=== PATIENT | female | born 1990 | race African-American/Black ===

== ENCOUNTER 2022-05-05 16:56 | Emergency (ER) | payer OTHER ==
[2022-05-05 18:23] LABS: Bilirubin Neg (Negative); Blood, Urine 10 (Negative); Clarity Clear (Clear); Glucose, Urine (Dipstick) Normal (Negative); Ketone, Urine 5 mg/dL (Negative); Leukocyte 100 (Negative); Nitrite Negative (Negative); Protein, Urine (Dipstick) 15 mg/dl (Neg-Trace); Specific Gravity, Urine 1.025 (1.002-1.036)
[2022-05-05 18:38] LABS: Bacteria/HPF 2+ HPF (None Seen); Mucous/LPF Rare LPF (<2+); RBC/HPF 0-3 HPF (0-3)
== END 2022-05-05 19:35 | disposition home or self-care (01) ==
LOC: CSHERS 16:56
DX: N39.0 Urinary tract infection, site not specified (principal); M54.50 Low back pain, unspecified
CPT/HCPCS: 81003; 81015; 87086; 99283

== ENCOUNTER 2022-05-05 19:40 | Day surgery (SDC) | payer OTHER ==
[2022-05-05 20:16] VITALS: BMI 36.5
== END 2022-05-05 21:08 | disposition home or self-care (01) ==
LOC: CSHLD/OP 19:40
PROVIDERS: ATTEND Obstetrics & Gynecology
DX: O23.42 Unspecified infection of urinary tract in pregnancy, second trimester (principal); N39.0 Urinary tract infection, site not specified; Z3A.25 25 weeks gestation of pregnancy
CPT/HCPCS: 99282

== ENCOUNTER 2022-07-28 16:36 | Day surgery (SDC) | payer OTHER ==
[2022-07-28] MEDS ORDERED: hydrALAZINE 20 MG/ML VIAL SLOW IVP PRN (17:17)
[2022-07-28 17:26] VITALS: BMI 36.8
[2022-07-28] MEDS ORDERED: Terbutaline Sulfate 1 MG/ML VIAL SC SCH (17:30)
[2022-07-28] MEDS ORDERED: Lactated Ringer's 1,000 ML IV SCH (17:30)
[2022-07-28 17:53] LABS: Mean Corpuscular HGB CONC 33.2 g/dL (32.0-36.0); Mean Corpuscular Hemoglobin 28.6 pg (27.0-33.0); Mean Platelet Volume 12.1 fl (7.4-10.4); Platelet Count 230 10x3/uL (150-450); RBC Distribution Width 12.7 % (11.5-14.5); White Blood Cell (WBC) Count 6.2 10x3/uL (3.5-10.5)
== END 2022-07-28 17:54 | disposition home health service (06) ==
LOC: CSHLD/OP 16:36
PROVIDERS: ATTEND Family Medicine
DX: O32.3XX0 Maternal care for face, brow and chin presentation, not applicable or unspecified (principal); Z3A.37 37 weeks gestation of pregnancy
CPT/HCPCS: 85027; 99282